=== PATIENT | female | born 1990 | race Caucasian/White ===

== ENCOUNTER 2018-07-28 16:18 | Outpatient (RCR) | payer BC, SELFPAY ==
[2018-07-28 20:51] LABS: TSH 3.76 uIU/mL (0.358-3.74)
[2018-07-28 20:56] LABS: Hemoglobin A1C 5.5 % (4.5-6.2)
== END 2018-08-05 23:59 | disposition home or self-care (01) ==
LOC: NCHCN 16:18
PROVIDERS: Visit Provider Nurse Practitioner Family
DX: E28.2 Polycystic ovarian syndrome (principal); R21 Rash and other nonspecific skin eruption; L30.9 Dermatitis, unspecified; K21.9 Gastro-esophageal reflux disease without esophagitis; E66.01 Morbid (severe) obesity due to excess calories
CPT/HCPCS: 83036; 84443

== ENCOUNTER 2018-08-31 16:00 | Outpatient (REF) | payer BC, SELFPAY ==
[2018-08-31 22:15] LABS: TSH 2.34 uIU/mL (0.358-3.74)
== END 2018-08-31 16:20 ==
LOC: NCHCN 16:00
PROVIDERS: PCP Nurse Practitioner Family; Visit Provider Nurse Practitioner Family
DX: R94.6 Abnormal results of thyroid function studies (principal)
CPT/HCPCS: 84443

== ENCOUNTER 2019-07-12 09:51 | Outpatient (REF) | payer BC, SELFPAY ==
[2019-07-12 22:18] LABS: Anion Gap 10.1 mmol/L (3-11); BUN 16 mg/dL (7-18); CO2 26.9 mmol/L (21.0-32.0); CREATININE 0.94 mg/dL (0.55-1.02); Calcium 9.4 mg/dL (8.5-10.1); Chloride 103 mmol/L (98-107); Glucose 104 mg/dL (70-100); Magnesium 1.6 mg/dL (1.8-2.4); Potassium 4.2 mmol/L (3.5-5.1); Sodium 140 mmol/L (136-145); TSH 2.26 uIU/mL (0.36-3.74); Vitamin B12 731 pg/mL (193-986)
[2019-07-14 13:07] LABS: IgA 135 mg/dL (85-499); Interpretation SEE COMMENTS; Tissue Transglutaminase IgA <1.2 U/mL (<4.0)
== END 2019-07-12 10:11 ==
LOC: NCHCO 09:51
PROVIDERS: PCP Nurse Practitioner Family; Visit Provider Nurse Practitioner Family
DX: K21.9 Gastro-esophageal reflux disease without esophagitis (principal); N97.0 Female infertility associated with anovulation
CPT/HCPCS: 80048; 82784; 83516; 82607; 83735; 84443

== ENCOUNTER 2019-07-14 10:04 | Outpatient (REF) | payer BC, SELFPAY ==
[2019-07-20 15:14] LABS: Helicobacter pylori Ag, Feces Negative (NEGAT)
== END 2019-07-14 10:24 ==
LOC: NCHCN 10:04
PROVIDERS: PCP Nurse Practitioner Family; Visit Provider Nurse Practitioner Family
DX: K21.9 Gastro-esophageal reflux disease without esophagitis (principal)
CPT/HCPCS: 87338

== ENCOUNTER 2019-11-05 21:34 | Outpatient (REF) | payer BC, SELFPAY ==
[2019-11-08 10:43] LABS: HCG Quant, Pregnancy 180 mIU/mL (1-3)
== END 2019-11-05 21:54 ==
LOC: NCHCN 21:34
PROVIDERS: PCP Nurse Practitioner Family; Visit Provider Nurse Practitioner Family
DX: N97.0 Female infertility associated with anovulation (principal)
CPT/HCPCS: 84702

== ENCOUNTER 2020-08-10 10:32 | Outpatient (REF) | payer BC, SELFPAY ==
--- NOTE | 2020-08-10 08:30 | PAPFT_PTH ---
PAT[id number]GE/SX: 30/F ROOM: RE08/10/[address]: Jammie Pope : 1990 BED: DIS: 08/10/2020 SPEC #: [id number] RECD: 08/11/20 10:35 STATUS: CONSUELO RESharmin #: [id number] SHRUTHI: 08/10/20 08:[address]: Jammie Lr DEPT: [facility] Cytology RECD BY: Gloria Silva Tissues: 1 - CX/ENDOCX FOR PAP SMEARS Procedures: PAP THIN PREP/[facility] Screening Comments: [id number] ([facility] [place])
== END 2020-08-10 10:52 ==
LOC: NCHCN 10:32
PROVIDERS: PCP Nurse Practitioner Family; Visit Provider Nurse Practitioner Family
DX: Z12.4 Encounter for screening for malignant neoplasm of cervix (principal)
CPT/HCPCS: 88142

== ENCOUNTER 2020-09-12 13:40 | Outpatient (REF) | payer BC, SELFPAY ==
[2020-09-15 15:56] LABS: COVID-19 RT-PCR Result NEGATIVE (Negative)
== END 2020-09-12 14:00 ==
LOC: NCHCN 13:40
PROVIDERS: PCP Nurse Practitioner Family; Visit Provider Nurse Practitioner Family
DX: Z20.828 Contact with and (suspected) exposure to other viral communicable diseases (principal)
CPT/HCPCS: U0003

== ENCOUNTER 2021-10-08 17:35 | Outpatient (REF) | payer BC, SELFPAY ==
[2021-10-10 15:00] LABS: COVID-19 RT-PCR UVMMC Result Negative (Negative)
== END 2021-10-08 17:36 | disposition home or self-care (01) ==
LOC: NCHCN 17:35
PROVIDERS: PCP Nurse Practitioner Family; Visit Provider Family Medicine
DX: Z20.822 Contact with and (suspected) exposure to COVID-19 (principal); J06.9 Acute upper respiratory infection, unspecified
CPT/HCPCS: U0003

== ENCOUNTER 2022-03-26 18:52 | Outpatient (REF) | payer BC, SELFPAY ==
[2022-03-26 14:34] LABS: HCT 39.7 % (36.0-46.0); HGB 13.7 g/dL (11.2-15.7); MCH 28.8 pg (27.0-33.0); MCHC 34.5 % (32.0-36.0); MCV 84 fL (80-95); MPV 10.7 fL (8.0-11.0); Platelet Count 228 10^3/uL (130-400); RBC 4.75 10^6/uL (3.93-5.22); RDW 12.5 % (11.7-14.6); RDW-SD 38.2 fL; WBC 8.26 10^3/uL (4.4-10.8)
[2022-03-26 15:53] LABS: Anion Gap 11.8 mmol/L (3-11); BUN 16 mg/dL (7-18); CO2 24.2 mmol/L (21.0-32.0); CREATININE 0.8 mg/dL (0.55-1.02); Calcium 9.1 mg/dL (8.5-10.1); Chloride 102 mmol/L (98-107); Ferritin 38 ng/mL (8-252); Glucose 94 mg/dL (74-106); Potassium 4.1 mmol/L (3.5-5.1); Sodium 138 mmol/L (136-145); TSH 1.77 uIU/mL (0.36-3.74)
== END 2022-03-26 18:53 | disposition home or self-care (01) ==
LOC: NCHCN 18:52
PROVIDERS: PCP Nurse Practitioner Family; Visit Provider Nurse Practitioner Family
DX: I10 Essential (primary) hypertension (principal); R53.83 Other fatigue; F41.1 Generalized anxiety disorder; F41.0 Panic disorder [episodic paroxysmal anxiety]; G25.81 Restless legs syndrome
CPT/HCPCS: 80048; 85027; 82728; 84443

== ENCOUNTER 2023-02-11 12:45 | Outpatient (REF) | payer BC, SELFPAY ==
[2023-02-11 14:41] LABS: HCT 39.7 % (36.0-46.0); HGB 13.4 g/dL (11.2-15.7); MCH 28.5 pg (27.0-33.0); MCHC 33.8 % (32.0-36.0); MCV 85 fL (80-95); MPV 10.6 fL (8.0-11.0); Platelet Count 240 10^3/uL (130-400); RDW 12.9 % (11.7-14.6); RDW-SD 39.8 fL
[2023-02-11 15:10] LABS: ALT 32 U/L (14-59); AST 19 U/L (15-37); Albumin 3.8 g/dL (3.4-5.0); Alkaline Phosphatase 104 U/L (46-116); Anion Gap 7.7 mmol/L (3-11); BUN 17 mg/dL (7-18); Bilirubin, Total 0.3 mg/dL (0.2-1.0); CO2 27.3 mmol/L (21.0-32.0); Calcium 9.1 mg/dL (8.5-10.1); Chloride 105 mmol/L (98-107); Estimated GFR 77.24 (mL/min/1.73m2); Ferritin 59 ng/mL (8-252); Glucose 119 mg/dL (74-106); Sodium 140 mmol/L (136-145); TSH 1.65 uIU/mL (0.36-3.74); Total Protein 7.5 g/dL (6.4-8.2)
== END 2023-02-11 12:46 | disposition home or self-care (01) ==
LOC: NCHCN 12:45
PROVIDERS: PCP Nurse Practitioner Family; Visit Provider Nurse Practitioner Family
DX: I10 Essential (primary) hypertension (principal); G25.81 Restless legs syndrome; E66.01 Morbid (severe) obesity due to excess calories
CPT/HCPCS: 80053; 85027; 82728; 84443

== ENCOUNTER 2024-04-05 12:25 | Outpatient (REF) | payer BC, SELFPAY ==
--- NOTE | 2024-04-05 16:45 | PAPFT_PTH ---
PATIENT: Sulema Medina LOC: [facility] U#:[id number] AGE/SX: 33/F ROOM: RE04/05/[address]: Jammie Pope : 1990 BED: DIS: 04/05/2024 SPEC #: [id number] RECD: 04/06/24 18:35 STATUS: CONSUELO RESharmin #: [id number] SHRUTHI: 04/05/24 16:[address]: Jammie Lr DEPT: [facility] Cytology RECD BY: Isabella Trejo Tissues: 1 - CX/ENDOCX FOR PAP SMEARS Procedures: PAP THIN PREP/[facility] Screening HPV DNA PROBE Comments: [id number] HPV 16 & 18/45) (CHLAMYDIA/GC)
[2024-04-07 12:49] LABS: Chlamydia Result Negative (Negative); GC Result Negative (Negative)
== END 2024-04-05 12:26 | disposition home or self-care (01) ==
LOC: NCHCN 12:25
PROVIDERS: PCP Nurse Practitioner Family; Visit Provider Nurse Practitioner Family
DX: Z01.419 Encounter for gynecological examination (general) (routine) without abnormal findings (principal)
CPT/HCPCS: 87491; 87591; 88142; 87624